=== PATIENT | male | born 1995 | race Caucasian/White ===

== ENCOUNTER 2017-03-14 02:16 | Emergency (ER) | payer SELFPAY ==
[2017-03-14 02:26] VITALS: BP 127/76
--- NOTE | 2017-03-14 02:46 | PHYS DOC ---
Past History Past Medical History: No Pertinent History Past Surgical History: Other Alcohol Use: Heavy Drug Use: None Adult General Chief Complaint Chief Complaint: ANKLE PROBLEM HPI HPI Patient is a 21 year old male who presents with ankle injury. Patient states 1 week ago & again tonight he sustained ankle inversion injury while hunting. He complains of pain with weight bearing & reports swelling. Denies other injuries. No previous fractures or surgeries to this ankle/foot. Did not take any medication at home prior to arrival. Review of Systems Review of Systems Constitutional: Denies fever or chills HENT: Denies nasal congestion or sore throat Respiratory: Denies cough Cardiovascular: Denies chest pain GI: Denies abdominal pain Musculoskeletal: Reports ankle pain Integument: Denies rash Neurologic: Denies headache Allergies Allergies Allergies Coded Allergies Type Severity Reaction Last Updated Verified No Known Drug Allergies 03/14/17 No Physical Exam Physical Exam Constitutional: Well developed, well nourished, no acute distress, non-toxic appearance. HENT: Normocephalic, atraumatic, bilateral external ears normal, oropharynx moist, nose normal. Eyes: conjunctiva normal, no discharge. Cardiovascular: no edema. Lungs & Thorax: no respiratory distress. Abdomen: nondistended. Skin: no rash. Extremities: left ankle mild swelling over lateral malleolus, no deformity, tenderness over lateral malleolus, no medial tenderness, no tenderness to foot including head of 5th metatarsal, no proximal tib/fib tenderness, intact dorsiflexion/plantarflexion though both elicit pain, able to move toes, dp/pt 2+ , sensation intact to foot. Neurologic: Alert and oriented X 3, no focal deficits noted. Psychologic: Affect normal, judgement normal, mood normal. Current Patient Data Vital Signs Vital Signs Date Time Temp Pulse Resp B/P (MAP) Pulse Ox O2 Delivery O2 Flow Rate FiO2 03/14/17 02:26 97.7 85 16 100 Room Air EKG EKG [] Radiology/Procedures Radiology/Procedures XR L ankle, 3 views: interpreted by me: no fracture, no dislocation, no acute process.[] Course & Med Decision Making Course & Med Decision Making Pertinent Labs and Imaging studies reviewed. (See chart for details) The patient presents with ankle injury. X-ray negative for fracture or dislocation. Provided martell wrap. He declined ibuprofen here. Recommend rest, ice, elevate, martell wrap, ibuprofen. Follow up PRN with ortho if not improving in 1-2 weeks. Come back for neurovascular compromise or otherwise worsening condition. Discharged home in stable condition. [] Dragon Disclaimer Dragon Disclaimer This chart was dictated in whole or in part using Voice Recognition software in a busy, high-work load, and often noisy Emergency Department environment. It may contain unintended and wholly unrecognized errors or omissions. Departure Departure: Impression: Primary Impression: Ankle sprain Disposition: HOME, SELF-CARE Condition: STABLE Referrals: PCP,NO (PCP) [facility] Patient Instructions: Ankle Sprain, [id number] Additional Instructions: You were seen in the emergency department today for ankle injury. Your x-ray did not show a broken bone or dislocation. Please rest, ice, elevate, take ibuprofen for pain & swelling, wear martell wrap for comfort. Follow up with orthopedic surgery if not improving in 1-2 weeks. Problem Qualifiers Primary Impression: Ankle sprain Encounter type: initial encounter Involved ligament of ankle: unspecified ligament Laterality: left Qualified Codes: S93.402A - Sprain of unspecified ligament of left ankle, initial encounter PIERRE ELLIS MD Mar 14, 2017 02:46
--- NOTE | 2017-03-14 08:03 | RAD ---
EXAM: Left ankle 3 views. HISTORY: Left ankle pain and swelling after injury. COMPARISON: None. FINDINGS: Three views of the left ankle are obtained. No fractures are identified. Alignment is normal. Joint spaces are maintained. IMPRESSION: 1. No fracture.
== END 2017-03-14 02:57 | disposition home or self-care (01) ==
LOC: ER 02:16
DX: S93.402A Sprain of unspecified ligament of left ankle, initial encounter (principal); F10.10 Alcohol abuse, uncomplicated; X58.XXXA Exposure to other specified factors, initial encounter; Y93.89 Activity, other specified; Y99.8 Other external cause status; Y92.89 Other specified places as the place of occurrence of the external cause
CPT/HCPCS: 73610; 99284

== ENCOUNTER 2017-05-25 13:16 | Emergency (ER) | payer SELFPAY ==
[2017-05-25 13:16] VITALS: BP 119/71
--- NOTE | 2017-05-25 14:13 | PHYS DOC ---
General Chief Complaint: SEXUALLY TRANSMITTED DISEASE Stated Complaint: STD CHECK Time Seen by MD: 14:11 Problems: History of Present Illness Allergies: Coded Allergies: No Known Drug Allergies (Unverified , 03/14/17) Departure Time of Disposition: 14:12 Disposition: 01 HOME, SELF-CARE Diagnosis: dysuria with Chlamydia exposure Condition: STABLE Patient Instructions: Safe Sex, Sexually Transmitted Disease, [id number] Additional Instructions: As discussed you have refused genital swab testing due to time constraints. The Rocephin and Zithromax you received in the emergency department should resolve gonorrhea or chlamydial infections should they be present. It is recommended that he follow-up at the health department for HIV testing as well as confirmation testing that the infection has resolved. Barrier protection with all sexual activity recommended. Follow-up at the health department in 1-2 weeks as discussed. Return to ED with new or changing symptoms. SHANIQUA BURKETT DO May 25, 2017 14:13
[2017-05-25] MEDS ORDERED: AZITHROMYCIN 1 GM PACKET PO ONE (14:30)
[2017-05-25] MEDS ORDERED: cefTRIAXone IM 1 GM VIAL IM ONE (14:30)
== END 2017-05-25 14:55 | disposition home or self-care (01) ==
LOC: ER 13:16
DX: Z20.2 Contact with and (suspected) exposure to infections with a predominantly sexual mode of transmission (principal); R30.0 Dysuria
CPT/HCPCS: 96372; 99283; J0456; J0696

== ENCOUNTER 2021-02-10 14:33 | Emergency (ER) | payer SELFPAY ==
[~2021-02-10] VITALS: Ht 170.2 cm; Wt 76.2 kg
[2021-02-10 14:43] VITALS: BP 126/81
--- NOTE | 2021-02-10 15:12 | PHYS DOC ---
Past History Past Medical History: STD Past Surgical History: No Surgical History Alcohol Use: Heavy Drug Use: Marijuana General Adult EDM: Chief Complaint: FACE PAIN HPI: HPI: 25-year-old male presents with right-sided jaw pain. He has had this pain for a couple of weeks. It is painful all the time, about 4 out of 10. It is worse if he tries to open his mouth wide. He was bucked off of a horse a couple weeks ago and hit his face against a trailer. He will not evaluated after this traumatic event. At baseline, the patient has poor dentition. He states that this pain is different than when he has had bad teeth in the past. He is not having any current sensitivities inside his mouth. He denies fever or chills. Review of Systems: Review of Systems: Constitutional: Denies fever or chills Eyes: Denies change in visual acuity HENT: Right-sided jaw pain Respiratory: Denies cough or shortness of breath Cardiovascular: Denies chest pain or edema GI: Denies abdominal pain, nausea, vomiting, bloody stools or diarrhea : Denies dysuria Musculoskeletal: Denies back pain or joint pain Integument: Denies rash Neurologic: Denies headache, focal weakness or sensory changes Endocrine: Denies polyuria or polydipsia Lymphatic: Denies swollen glands Psychiatric: Denies depression or anxiety Allergies: Allergies: Allergies Coded Allergies Type Severity Reaction Last Updated Verified No Known Drug Allergies 03/14/17 No Physical Exam: PE: Constitutional: Well developed, well nourished, no acute distress, non-toxic appearance. [] HENT: Normocephalic, atraumatic, bilateral external ears normal, oropharynx moist, no oral exudates, nose normal. Tenderness around the right TMJ, no obvious deformity or ecchymosis or swelling. [] Eyes: PERRLA, EOMI, conjunctiva normal, no discharge. [] Neck: Normal range of motion, no tenderness, supple, no stridor. [] Cardiovascular: Heart rate regular rhythm, no murmur [] Lungs & Thorax: Bilateral breath sounds clear to auscultation [] Abdomen: Bowel sounds normal, soft, no tenderness, no masses, no pulsatile masses. [] Skin: Warm, dry, no erythema, no rash. [] Back: No tenderness, no CVA tenderness. [] Extremities: No tenderness, no cyanosis, no clubbing, ROM intact, no edema. [] Neurologic: Alert and oriented X 3, normal motor function, normal sensory function, no focal deficits noted. [] Psychologic: Affect normal, judgement normal, mood normal. [] Current Patient Data: Vital Signs: Vital Signs Date Time Temp Pulse Resp B/P (MAP) Pulse Ox O2 Delivery O2 Flow Rate FiO2 02/10/21 14:43 98.2 82 18 126/81 (96) 100 Room Air EKG: EKG: [] Radiology/Procedures: Radiology/Procedures: [] Impressions: EXAM: Maxillofacial bones, 3 views. HISTORY: Jaw pain after fall from horse. COMPARISON: None. FINDINGS: 3 views of the maxillofacial bones are obtained. No fracture is seen. There are dental restorations. There are unerupted third mandibular molars. There is minimal rightward nasal septal deviation. The paranasal sinuses are clear. IMPRESSION: No acute osseous finding. Electronically signed by: Melly Lopez MD (02/10/2021 3:21 PM) [id number] DICTATED AND SIGNED BY: MELLY LOPEZ MD DATE: 02/10/21 1520 CC: SLY COLLINS DO; PCP,NO ~MTH0 0 Heart Score: C/O Chest Pain: N/A Risk Factors: Risk Factors: DM, Current or recent (<one month) smoker, HTN, HLP, family history of CAD, obesity. Risk Scores: Score 0 - 3: 2.5% MACE over next 6 weeks - Discharge Home Score 4 - 6: 20.3% MACE over next 6 weeks - Admit for Clinical Observation Score 7 - 10: 72.7% MACE over next 6 weeks - Early Invasive Strategies Course & Med Decision Making: Course & Med Decision Making Pertinent Labs and Imaging studies reviewed. (See chart for details) The patient's x-ray is negative for fracture. This appears to be TMJ dysfunction. I will treat him with prednisone 50 mg for the next 3 days and Flexeril. Also advised that he follow-up with a dentist for his teeth as well as for this problem. He is stable for discharge at this time. [] Dragon Disclaimer: Dragon Disclaimer: This electronic medical record was generated, in whole or in part, using a voice recognition dictation system. Departure Departure: Impression: Primary Impression: TMJ (temporomandibular joint disorder) Disposition: HOME / SELF CARE / HOMELESS Condition: STABLE Referrals: PCP,NO (PCP) Patient Instructions: Temporomandibular Problems Scripts Prednisone (PREDNISONE) 50 Mg Tablet 1 TAB PO DAILY for TMJ pain for 3 Days, #3 TAB Prov: SLY COLLINS DO 02/10/21 Cyclobenzaprine Hcl (CYCLOBENZAPRINE HCL) 10 Mg Tablet 1 TAB PO TID PRN for MUSCLE SPASMS, #30 TAB Prov: SLY COLLINS DO 02/10/21 SLY COLLINS DO Feb 10, 2021 15:12
--- NOTE | 2021-02-10 15:24 | RAD ---
EXAM: Maxillofacial bones, 3 views. HISTORY: Jaw pain after fall from horse. COMPARISON: None. FINDINGS: 3 views of the maxillofacial bones are obtained. No fracture is seen. There are dental rest orations. There are unerupted third mandibular molars. There is minimal rightward nasal septal deviat ion. The paranasal sinuses are clear. IMPRESSION: No acute osseous finding. Electronically signed by: Melly Lopez MD (02/10/2021 3:21 PM) [id number]
[2021-02-10] MEDS ORDERED: CYCL-331 PO (15:54)
[2021-02-10] MEDS ORDERED: PRED50TA PO (15:54)
== END 2021-02-10 16:00 | disposition home or self-care (01) ==
LOC: ER 14:33
DX: M26.603 Bilateral temporomandibular joint disorder, unspecified (principal); F12.10 Cannabis abuse, uncomplicated
CPT/HCPCS: 70150; 99283